=== PATIENT | female | born 1995 | race Caucasian/White ===

== ENCOUNTER 2018-08-21 20:09 | Inpatient (IN) | payer MEDICAID ==
[~2018-08-21] VITALS: Ht 167.6 cm; Wt 90.9 kg
[2018-08-21 20:45] VITALS: BP 122/77; Ht 167.6 cm; Wt 90.9 kg
[2018-08-21 20:45] LABS: HEMATOCRIT 31.1 % (36.0-48.0); HEMOGLOBIN 10.3 g/dL (12-16); MCH 30.4 pg (26.0-34.0); MCHC 33.1 g/dL (31.0-37.0); MCV 91.7 fL (80.0-100.0); MEAN PLATELET VOLUME 9.9 fL (7.4-10.4); RBC 3.39 10x6/uL (4.00-5.40); RDW 14.1 % (11.5-14.5); WBC 16.7 10x3/uL (4.8-10.8)
[2018-08-21 20:55] LABS: UDS - AMPHET NEGATIVE QUAL (NEGATIVE); UDS - BARB NEGATIVE QUAL (NEGATIVE); UDS - BENZO NEGATIVE QUAL (NEGATIVE); UDS - COCAINE NEGATIVE QUAL (NEGATIVE); UDS - OPIATE NEGATIVE QUAL (NEGATIVE); UDS - PCP NEGATIVE QUAL (NEGATIVE); UDS - THC NEGATIVE QUAL (NEGATIVE)
[2018-08-21 21:10] LABS: APPEARANCE CLEAR (CLEAR); BILIRUBIN NEGATIVE (NEGATIVE); COLOR YELLOW (YELLOW); GLUCOSE NEGATIVE (NEGATIVE); KETONE NEGATIVE (NEGATIVE); NITRITE NEGATIVE (NEGATIVE); PROTEIN NEGATIVE (NEGATIVE); SPECIFIC GRAVITY 1.025 (1.005-1.020); UROBILINOGEN NORMAL (NORMAL)
[2018-08-21 21:26] LABS: BACTERIA MODERATE /hpf (NONE SEEN); EPITHELIAL CELLS 0-5 /hpf (0-5); RED CELLS - URINE 0-5 /hpf (0-5)
--- NOTE | 2018-08-22 17:56 | NUR ---
PT TRANSFERRED TO ROOM 1257. PT AND SPOUSE ORIENTED TO NEW ROOM, CALL LIGHT, TV CONTROLS, AND BATHROOM. LINENS AND TOWELS PROVIDED, ALONG WITH PERIPADS, PANTIES, AND DERMAPLAST FOR PERINEAL PAIN. SEE EMAR FOR DERMAPLAST SCAN. POC DISCUSSED WITH PT ALONG WITH S/S TO REPORT REGARDING LOCHIA/CLOTS. PT ALSO ENCOURAGED TO EMPTY BLADDER FREQUENTLY TO DECREASE BLEEDING AND CRAMPING. UNDERSTANDING VERBALIZED. PT DENIES PAIN OR ANY NEEDS AT THIS TIME. SRUx2, CL IN REACH. SPOUSE AT BEDSIDE. IN [place]. WILL CONT TO MONITOR.
--- NOTE | 2018-08-22 18:58 | NUR ---
BEDSIDE SHIFT REPORT DONE, PT REQUESTS LARGE ICE WATER AND PROVIDED BY Joann DELEON RN. BROOKS SILVER
--- NOTE | 2018-08-22 20:37 | NUR ---
FREELANCE INTERPRETER/TRANSLATOR PERFORMED. RESP EVEN AND UNLABORED. LUNGS CLEAR BILATERALLY. FUNDUS FIRM U/2. PT REPRTS SCANT AMT OF LOCHIA. RATES PAIN 4/10. INFANT RESTING QUIETLY ON HER CHEST APPEARS TO BE BONDING WELL. BROOKS SILVER
--- NOTE | 2018-08-22 20:46 | NUR ---
PT MEDICATED WITH TORADOL 10MG PO. BROKOS SILVER
[2018-08-22 20:47] VITALS: BP 127/86
--- NOTE | 2018-08-22 22:09 | NUR ---
PT CONTINUES TO C/O PAIN 05/22. MEDICATED WITH TYLENOL 1000MG. SEE E-MAR FOR DOCUMENTATION. BROOKS SILVER
--- NOTE | 2018-08-23 00:28 | NUR ---
IN BED WITH BABY ON CHEST. DENIES NEEDS AT THIS TIME.
--- NOTE | 2018-08-23 01:20 | NUR ---
SLEEPING WITH BABY IN CRIB AT BEDSIDE. DENIES NEEDS.
--- NOTE | 2018-08-23 02:12 | NUR ---
PT RESTING WITH EYES CLOSED. TYLENOL 1000MG ADMINISTERED. PT RATES PAIN 02/21. DENIES FURTHER NEEDS. BROOKS SILVER
--- NOTE | 2018-08-23 04:00 | NUR ---
PT RESTING WITH EYES CLOSED. RESP EVEN AND UNLABORED. BROOKS SILVER
[2018-08-23 06:09] LABS: RAPID PLASMA REAGIN Non Reactive (Non Reactive)
[2018-08-23 06:33] LABS: BASOPHILS 0.2 % (0-2); EOSINOPHILS 0.9 % (0-7); HEMATOCRIT 33.1 % (36.0-48.0); HEMOGLOBIN 11.2 g/dL (12-16); IMMATURE GRANULOCYTES 1.1 % (0-5); MCH 30.6 pg (26.0-34.0); MCHC 33.8 g/dL (31.0-37.0); MCV 90.4 fL (80.0-100.0); MEAN PLATELET VOLUME 9.8 fL (7.4-10.4); MONOCYTES 5.8 % (2-11); PLATELET COUNT 276 10x3/uL (130-400); RBC 3.66 10x6/uL (4.00-5.40); RDW 14.3 % (11.5-14.5); WBC 17.1 10x3/uL (4.8-10.8)
--- NOTE | 2018-08-23 07:15 | NUR ---
AM ASSESSMENT COMPLETED CHARTED ON FLOWSHEET. PT RATES PAIN AT 3/10 BUT DENIES NEED FOR MEDS AT THIS TIME. FUNDUS FIRM AT U/1 WITH LIGHT BLEEDING NOTED TO PRANAY PAD, SHE DENIES HEAVY BLEEDING OR CLOTS WITH VOIDS. IN CRIB AT BEDSIDE. SIDE RAILS UP X 2 WITH CALL LIGHT IN REACH.
--- NOTE | 2018-08-23 08:30 | NUR ---
Tylenol 1000mg given as scanned to emar. pt rates pain at this time at 2-3/10 Tordal offered but she declines.
--- NOTE | 2018-08-23 09:15 | NUR ---
Pain reassment, she rates at 0/10.
--- NOTE | 2018-08-23 11:36 | NUR ---
large cup of ice per request. denies any other needs at this time. in crib at bedside with side rails up x 2 and call light in reach.
--- NOTE | 2018-08-23 14:18 | NUR ---
Scheduled tylenol 1000mg given po. pt rates pain at 2/10 at this time. Saline lock from left forearm removed with cath intact. pt denies any needs at this time. side rails up x 2 with call light in reach.
--- NOTE | 2018-08-23 15:30 | MORECARE ---
CASE MANAGEMENT DISCHARGE SUMMARY PATIENT: SINA HERNDON UNIT: [id number] ADM DATE: 08/21/18 AGE: 23 : [birth year] SEX: F ROOM/BED: D.1257 AUTHOR: JOHNNIE HIGH PHYSICIAN: REFERRING PHYSICIAN: UZMA DUGGAN MD DATE OF SERVICE: 08/23/18 Discharge Plan Patient Name: SINA HERNDON Facility: [facility]:[place] : 1995 Planned Disposition: Anticipated Discharge Date: 08/23/18 Discharge Date: Expected LOS: 2 Initial Reviewer: [email or web address] Initial Review Date: 08/21/2018 Generated: 08/23/18 4:30 pm Patient Name: SINA HERNDON Page [id number] at 1530 All edits/amendments must be made on the electronic document DICTATION DATE: 08/23/18 1530 CASSANDRA ARCHITECT: ROSANGELA 08/23/18 1530 RPT#: [id number] DC DATE: STATUS: ADM IN [facility] [address] [place] [address] END OF REPORT
--- NOTE | 2018-08-23 15:38 | MORECARE ---
CASE MANAGEMENT DISCHARGE SUMMARY PATIENT: SOCORRO HERNDON UNIT: [id number] ADM DATE: 08/21/18 AGE: 23 : [birth year] SEX: F ROOM/BED: D.1257 AUTHOR: JOHNNIE HIGH PHYSICIAN: REFERRING PHYSICIAN: JESSE DUGGAN MD DATE OF SERVICE: 08/23/18 Discharge Plan Patient Name: SOCORRO HERNDON Facility: [facility]:[place] : 1995 Planned Disposition: Anticipated Discharge Date: 08/23/18 Discharge Date: Expected LOS: 2 Initial Reviewer: [email or web address] Initial Review Date: 08/21/2018 Generated: 08/23/18 4:38 pm Comments DCP- Discharge Planning Updated by [email or web address]: Anais Burks on 08/23/18 2:[address] Patient Name: SOCORRO HERNDON Admission Status: Elective Accout number: [id number] Admission Date: 08-21-2018 : 1995 Admission Diagnosis: Attending: Jesse Duggan Current LOS: 2 Anticipated DC Date: 08-23-2018 Planned Disposition: Primary Insurance: MEDICAID [place] PEND[place] Discharge Planning Comments: CM met with mother of baby Odalys and father of baby Bibi Pino. Consult received on baby from Dr. Crisostomo regarding no care and support issues. Socorro (MOB) reports she and her (BROCK) live here in [place] and have 2 other children at home ages 5 and 1/12 year old. Mom has custody of her other children. Socorro does not work and stays home with the children. Alysia GUTIÉRREZ works night time babysitter at [employer]. Socorro reports that Dr. Duggan was her OB and she reports she did have visits with him once she moved here approx. half way through her . SHe reports she is going to use Dr. Crisostomo for her metaphysics teacher for baby. BROCK smokes but reports he does not smoke in the house. They have a care seat here to take the baby home. Informed them they will have to have the car seat in the room before dc. . FOB will transport them home at discharge. Socorro plans to sign up for [facility] for formula assistance. They denied having any problems financially getting diapers, clothes, or other needs for the baby. They have well water and will be using nursey water. They denied need for any resources or assistance at this time. Cm will be happy to follow up as needed. Biomedical Field Service Engineer: Anais Whitlock DP export: 08/23/18 2:30 p Patient Name: SOCORRO HERNDON Page [id number] at 1538 All edits/amendments must be made on the electronic document DICTATION DATE: 08/23/181536 MAINTENANCE EQUIPMENT OPERATOR: ROSANGELA 08/23/181536 RPT#: [id number] DC DATE: STATUS: ADM IN [facility] [address] [place] [address] END OF REPORT
--- NOTE | 2018-08-23 16:30 | NUR ---
LARGE CUP OF ICE WITH LEMON CHUATHBALUK DRINK PER REQUEST. IN CRIB AT BEDSIDE. DENIES PAIN OR DISCOMFORT, NO OTHER NEEDS AT THIS TIME. SIDE RAILS UP X 2 AND CALL LIGHT IN REACH.
--- NOTE | 2018-08-23 18:12 | NUR ---
PT SITTING UP IN BED HOLDING . STATES UNDERSTANDING THAT D/C WOULD NOT OCCUR UNTIL AFTER NEXT FEEDING, PT VERIFIES THAT SHE IS TO CALL NURSERY AFTER THAT FEEDING. DENIES PAIN OR DISCOMFORT AND HAS NO NEEDS. SIDE RAILS UP X 2 WITH CALL LIGHT IN REACH.
--- NOTE | 2018-08-23 19:09 | NUR ---
BEDSIDE REPORT DONE WITH Hilary MONTEZ RN.
[2018-08-23 19:11] VITALS: BP 117/80
--- NOTE | 2018-08-23 19:11 | NUR ---
PT. SITTING UP IN BED WITH HOB AT 45 DEGREES. HOLDING AT PRESENT BUT HANDS HIM TO FOB WHILE ASSESSMENT IS BEING DONE. PT. CHEERFUL AND RELATING THAT SHE IS READY TO GO HOME TO SLEEP IN HER OWN BED. FUNDUS U/3 AND MIDLINE. BREATH SOUNDS CLEAR AND BOWEL SOUNDS ACTIVE. NO EDEMA OF LOWER EXTREMITIES AND PT. DENIES ANY PAIN IN LOWER EXTREMITIES. PT.REPORTS THAT SHE HAS OCCASIONAL CRAMP WHEN BABY IS HUNGRY BUT OTHERWISE, NO PAIN. PT. RELATES THAT SHE IS GOING TO WAIT UNTIL BABY REALLY HUNGRY BEFORE FEEDING SINCE DISCHARGE IS LINKED TO HOW WELL INFANT FEEDS. INFORMED PT. THAT IS NURSERY GIVES HER THE OK FOR DISCHARGE TO USE CALL LIGHT TO INFORM THIS NURSE SO HER DISCHARGE COULD BE COMPLETED. PT. STATED UNDERSTANDING TO ALL.
--- NOTE | 2018-08-23 20:15 | NUR ---
NBN INFORMS L&D STAFF THAT BABY IS DISCHARGING. WRITTEN AND VERBAL DISCHARGE INSTRUCTIONS GIVEN.
--- NOTE | 2018-08-23 20:30 | NUR ---
DISCHARGED OFF UNIT AFTER CARSEAT CHECK OF IN SEAT BY Sonali HARRIS RN. ESCORTED OFF UNIT VIA WHEELCHAIR TO PRIVATE CAR.
--- NOTE | 2018-08-26 13:02 | MORECARE ---
CASE MANAGEMENT DISCHARGE SUMMARY PATIENT: SOCORRO HERNDON UNIT: [id number] ADM DATE: 08/21/18 AGE: 23 : [birth year] SEX: F ROOM/BED: D.1257 AUTHOR: JOHNNIE HIGH PHYSICIAN: REFERRING PHYSICIAN: JESSE DUGGAN MD DATE OF SERVICE: 08/26/18 Discharge Plan Patient Name: SOCORRO HERNDON Facility: [facility]:[place] : 1995 Planned Disposition: Anticipated Discharge Date: 08/23/18 Discharge Date: 08/23/2018 Expected LOS: 2 Initial Reviewer: [email or web address] Initial Review Date: 08/21/2018 Generated: 08/26/18 2:02 pm Comments DCP- Discharge Planning Updated by [email or web address]: Anais Burks on 08/23/18 2:[address] Patient Name: SOCORRO HERNDON Admission Status: Elective Accout number: [id number] Admission Date: 08-21-2018 : 1995 Admission Diagnosis: Attending: Jesse Duggan Current LOS: 2 Anticipated DC Date: 08-23-2018 Planned Disposition: Primary Insurance: MEDICAID [place] PENDING Discharge Planning Comments: CM met with mother of baby Odalys and father of baby Bibi Pino. Consult received on baby from Dr. Crisostomo regarding no care and support issues. Socorro (MOB) reports she and her (BROCK) live here in [place] and have 2 other children at home ages 5 and 1/12 year old. Mom has custody of her other children. Socorro does not work and stays home with the children. PRADEEPAlysia Holliday works disability rater at [employer]. Socorro reports that Dr. Duggan was her OB and she reports she did have visits with him once she moved here approx. half way through her . SHe reports she is going to use Dr. Crisostomo for her water safety teacher for baby. BROCK smokes but reports he does not smoke in the house. They have a care seat here to take the baby home. Informed them they will have to have the car seat in the room before dc. . FOB will transport them home at discharge. Socorro plans to sign up for [facility] for formula assistance. They denied having any problems financially getting diapers, clothes, or other needs for the baby. They have well water and will be using nursey water. They denied need for any resources or assistance at this time. Cm will be happy to follow up as needed. Carbon Lamp Cleaner: Anais Whitlock DP export: 08/23/18 2:38 p Patient Name: SOCORRO HERNDON Page [id number] at 1302 All edits/amendments must be made on the electronic document DICTATION DATE: 08/26/18 1301 QUALITY ENG: ROSANGELA 08/26/18 1301 RPT#: [id number] DC DATE:08/23/18 STATUS: DIS IN [facility] [address] [place] [address] END OF REPORT
== END 2018-08-23 20:30 | disposition home or self-care (01) | DRG 807 ==
LOC: D.LD 20:09
PROVIDERS: ADMIT Obstetrics & Gynecology; ATTEND Obstetrics & Gynecology
PROC: 0HQ9XZZ Repair Perineum Skin, External Approach (ICD-10-PCS; principal; 2018-08-22)
PROC: 10E0XZZ Delivery of Products of Conception, External Approach (ICD-10-PCS; 2018-08-22)
DX: O70.0 First degree perineal laceration during delivery (principal); Z37.0 Single live birth; Z3A.38 38 weeks gestation of pregnancy